=== PATIENT | male | born 1990 | race Two or more races ===

== ENCOUNTER 2017-02-02 20:07 | Emergency (ER) | payer BC ==
[~2017-02-02] VITALS: Ht 180.3 cm; Wt 98.0 kg
[2017-02-02] MEDS ORDERED: ACETAMINOPHEN WITH CODEINE 300/30MG TABLET PO ONE (22:30)
[2017-02-02 23:14] VITALS: BP 140/88
== END 2017-02-03 00:42 | disposition home or self-care (01) ==
LOC: ER 23:33
DX: R07.89 Other chest pain (principal); M79.602 Pain in left arm; J45.909 Unspecified asthma, uncomplicated
CPT/HCPCS: 71010; 93005; 99284; Z7610

== ENCOUNTER 2019-12-26 17:27 | Emergency (ER) | payer BC ==
[~2019-12-26] VITALS: Ht 180.3 cm; Wt 96.6 kg
[2019-12-26 17:41] VITALS: BP 164/92
[2019-12-26] MEDS ORDERED: TETANUS, DIPHTHERIA, PERTUSSIS VAC/PF 0.5ML (>7YR OLD) IM ONE (19:00)
[2019-12-26] MEDS ORDERED: BACITRACIN ZINC OINT UDPKT TOP ONE (19:30)
== END 2019-12-26 20:13 | disposition home or self-care (01) ==
LOC: ER 17:27
DX: S61.452A Open bite of left hand, initial encounter (principal); S61.451A Open bite of right hand, initial encounter; J45.909 Unspecified asthma, uncomplicated; W54.0XXA Bitten by dog, initial encounter; Y93.89 Activity, other specified; Y92.488 Other paved roadways as the place of occurrence of the external cause; Y99.8 Other external cause status
CPT/HCPCS: 90471; 99283